=== PATIENT | male | born 1955 | race African-American/Black ===

== ENCOUNTER 2022-04-03 05:10 | Inpatient (IN) ==
[2022-03-29 16:59] LABS: Basophils % 0.3 % (0.0-0.8); Eosinophils # 0.3 10*3/uL (0.0-0.87); Eosinophils % 4.5 % (0.00-10.9); Hematocrit 41.2 VOL% (42.0-52.0); Immature Granulocytes % 0.7 %; Immature Granulocytes Absolute 0.05 #; Lymphocytes # 2.5 10*3/uL (1.4-4.0); Lymphocytes % 34.7 % (21.2-54.2); Mean Corpuscular HGB Conc 29.1 GM/DL (32-36); Mean Corpuscular Volume 74.6 FL (87-102); Mean Platelet Volume 10.6 FL (9.6-12.0); Monocytes # 0.8 10*3/uL (0.11-0.8); Monocytes % 10.6 % (1.7-12.7); Neutrophils % 49.2 % (38.7-73.9); Platelet Count 250 T/CUMM (130-400); Red Blood Count 5.52 MC/CUMM (3.8-5.5); Red Cell Distribution Width 19.4 % (9.3-17.3); White Blood Count 7.2 T/CUMM (4-12)
[2022-03-29 17:04] LABS: Calcium 9.4 MG/DL (8.5-10.1); Osmolality,Calculated 287.4 MOS/KG (273-304); Potassium 4.3 MMOL/L (3.5-5.1)
[2022-03-29 17:17] LABS: PT Patient Result 10.8 SECS (10.1-12.1)
[2022-04-03] MEDS ORDERED: ERTAPENEM 1,000 MG in SODIUM CHLORIDE 0.9% 100 ML IV ONE (06:00)
[2022-04-03] MEDS ORDERED: DIAZEPAM 5 MG TABLET PO ONE (06:46)
[2022-04-03] MEDS ORDERED: FAMOTIDINE 20 MG TABLET PO ONE (06:46)
[2022-04-03] MEDS ORDERED: GABAPENTIN 400 MG CAPSULE PO ONE (06:46)
[2022-04-03] MEDS ORDERED: ACETAMINOPHEN 500 MG TABLET PO ONE (06:46)
[2022-04-03] MEDS ORDERED: SODIUM CHLORIDE 0.9% 250 ML IV SCH (07:00)
[2022-04-03] MEDS ORDERED: MIDAZOLAM 2 MG/2 ML VIAL ONE (08:39)
[2022-04-03] MEDS ORDERED: fentaNYL 100 MCG/2 ML VIAL ONE ×2 (08:39→10:28)
[2022-04-03] MEDS ORDERED: LIDOCAINE 2% 5 ML VIAL ONE ×2 (08:40→09:16)
[2022-04-03] MEDS ORDERED: DEXAMETHASONE 4 MG/1 ML VIAL ONE (08:41)
[2022-04-03] MEDS ORDERED: ROPIVACAINE 0.5% 30 ML VIAL ONE (08:41)
[2022-04-03] MEDS ORDERED: ROCURONIUM 50 MG/5 ML VIAL IV ONE ×2 (09:16→11:05)
[2022-04-03] MEDS ORDERED: SUCCINYLCHOLINE 200 MG/10 ML VIAL ONE (09:16)
[2022-04-03] MEDS ORDERED: propofoL 200 MG/20 ML VIAL IV ONE (09:16)
[2022-04-03] MEDS ORDERED: DESFLURANE 1 UNIT/15 MINUTE INH ONE (09:34)
[2022-04-03] MEDS ORDERED: ONDANSETRON 4 MG/2 ML VIAL ONE (09:36)
[2022-04-03] MEDS ORDERED: PHENYLEPHRINE 1 MG/10 ML SYRINGE IV ONE (09:37)
[2022-04-03] MEDS ORDERED: FUROSEMIDE 20 MG/2 ML VIAL ONE (09:53)
[2022-04-03] MEDS ORDERED: HYDROCORTISONE 100 MG VIAL ONE (10:19)
[2022-04-03] MEDS ORDERED: ALBUMIN 5% 25.0 GM/500 ML VIAL IV ONE (10:57)
[2022-04-03] MEDS ORDERED: INDOCYANINE GREEN 25 MG VIAL IV ONE (11:57)
[2022-04-03] MEDS ORDERED: TISSUE ADHESIVE 1 EACH APPLICATOR TOP ONE (12:51)
[2022-04-03] MEDS ORDERED: SUGAMMADEX 200 MG/2 ML VIAL IV ONE (13:12)
[2022-04-03] MEDS ORDERED: COLCHICINE 0.6 MG CAPSULE PO PRN (13:29)
[2022-04-03] MEDS ORDERED: ONDANSETRON 4 MG/2 ML VIAL IV PRN (13:29)
[2022-04-03] MEDS ORDERED: predniSONE 10 MG TABLET PO PRN (13:29)
[2022-04-03] MEDS ORDERED: HYDROmorphone 1 MG/1 ML SYRINGE IV PRN (13:29)
[2022-04-03] MEDS: HYDROmorphone 1 MG/1 ML SYRINGE IV PRN ×2 (13:34→14:15)
[2022-04-03] MEDS: carvediloL 25 MG TABLET PO SCH (16:10)
[2022-04-03] MEDS: hydrALAZINE 25 MG TABLET PO SCH ×2 (16:10→21:15)
[2022-04-03 16:31] LABS: Calcium 9.3 MG/DL (8.5-10.1); Osmolality,Calculated 278.7 MOS/KG (273-304); Potassium 4.3 MMOL/L (3.5-5.1)
[2022-04-03 16:53] LABS: Basophils % 0.2 % (0.0-0.8); Eosinophils % 0.1 % (0.00-10.9); Hematocrit 41.1 VOL% (42.0-52.0); Hemoglobin 11.9 GM/DL (14.0-18.0); Immature Granulocytes % 0.7 %; Immature Granulocytes Absolute 0.06 #; Lymphocytes # 0.7 10*3/uL (1.4-4.0); Lymphocytes % 8.3 % (21.2-54.2); Mean Corpuscular Volume 74.3 FL (87-102); Mean Platelet Volume 10.9 FL (9.6-12.0); Monocytes # 0.2 10*3/uL (0.11-0.8); Monocytes % 2.7 % (1.7-12.7); Platelet Count 209 T/CUMM (130-400); Red Blood Count 5.53 MC/CUMM (3.8-5.5); Red Cell Distribution Width 19.6 % (9.3-17.3); White Blood Count 8.6 T/CUMM (4-12)
[2022-04-03] MEDS: LACTATED RINGERS 1,000 ML IV SCH (20:08)
[2022-04-03] MEDS ORDERED: ATORVASTATIN 80 MG TABLET PO SCH (21:00)
[2022-04-03] MEDS ORDERED: LATANOPROST 0.005% OPH SOLN 2.5 ML BOTTLE BOTH EYES SCH (21:00)
[2022-04-03] MEDS: FLUTICASONE 50 MCG NASAL SPRAY 16 GM BOTTLE BOTH NARES SCH (21:14)
[2022-04-03] MEDS: ALVIMOPAN 12 MG CAPSULE PO SCH (21:15)
[2022-04-03] MEDS: POTASSIUM CHLORIDE 10 MEQ TABLET PO SCH (21:15)
[2022-04-04] MEDS: LACTATED RINGERS 1,000 ML IV SCH (03:05)
[2022-04-04 06:23] LABS: Basophils % 0.1 % (0.0-0.8); Hematocrit 40.7 VOL% (42.0-52.0); Hemoglobin 11.8 GM/DL (14.0-18.0); Immature Granulocytes % 0.6 %; Immature Granulocytes Absolute 0.06 #; Lymphocytes # 1.1 10*3/uL (1.4-4.0); Lymphocytes % 10.6 % (21.2-54.2); Mean Corpuscular Volume 74.8 FL (87-102); Mean Platelet Volume 10.5 FL (9.6-12.0); Neutrophils % 79.7 % (38.7-73.9); Platelet Count 218 T/CUMM (130-400); Red Blood Count 5.44 MC/CUMM (3.8-5.5); Red Cell Distribution Width 19.8 % (9.3-17.3); White Blood Count 10.6 T/CUMM (4-12)
[2022-04-04 06:24] LABS: Calcium 9.5 MG/DL (8.5-10.1); Osmolality,Calculated 276.7 MOS/KG (273-304); Potassium 4.4 MMOL/L (3.5-5.1)
[2022-04-04 06:40] LABS: Hypochromia 1+; Microcytosis 1+; Ovalocytes Slight
[2022-04-04 06:41] LABS: Platelet Estimate Normal; Tear Drop Cells Slight
[2022-04-04] MEDS ORDERED: ALBUTEROL 2.5 MG/3 ML NEB RESP TX SCH (07:00)
[2022-04-04] MEDS: ALVIMOPAN 12 MG CAPSULE PO SCH (08:44)
[2022-04-04] MEDS: POTASSIUM CHLORIDE 10 MEQ TABLET PO SCH (08:44)
[2022-04-04] MEDS: carvediloL 25 MG TABLET PO SCH (08:44)
[2022-04-04] MEDS: FLUTICASONE 50 MCG NASAL SPRAY 16 GM BOTTLE BOTH NARES SCH (08:45)
[2022-04-04] MEDS: hydrALAZINE 25 MG TABLET PO SCH (08:45)
[2022-04-04] MEDS ORDERED: HEPARIN 5,000 UNIT/1 ML VIAL SUBCUT SCH (09:00)
[2022-04-04] MEDS ORDERED: ASPIRIN EC 81 MG TABLET PO SCH (09:00)
[2022-04-04] MEDS ORDERED: allopurinoL 100 MG TABLET PO SCH (09:00)
[2022-04-04] MEDS ORDERED: OMEGA 3 ACID ETHYL ESTERS 1 GM CAPSULE PO SCH (09:00)
[2022-04-04] MEDS ORDERED: ISOSORBIDE MONONITRATE 60 MG TABLET PO SCH (09:00)
[2022-04-04] MEDS ORDERED: amLODIPine 10 MG TABLET PO SCH (09:00)
[2022-04-04 11:27] VITALS: BP 152/82
== END 2022-04-04 12:05 | disposition home or self-care (01) | DRG 330 ==
LOC: N.OR 05:10 → N.SDSINP 05:13 → N.3E 14:54
PROVIDERS: ADMIT Surgery; ATTEND Surgery

== ENCOUNTER 2022-04-08 18:52 | Observation (INO) ==
[2022-04-08] MEDS ORDERED: ONDANSETRON 4 MG/2 ML VIAL IV PRN (20:33)
[2022-04-08] MEDS ORDERED: ALBUTEROL/IPRATROPIUM 3 ML NEB RESP TX PRN (20:33)
[2022-04-08] MEDS ORDERED: ACETAMINOPHEN 325 MG TABLET PO PRN (20:33)
[2022-04-08] MEDS: carvediloL 25 MG TABLET PO SCH (21:07)
[2022-04-08] MEDS: ATORVASTATIN 80 MG TABLET PO SCH (21:07)
[2022-04-08] MEDS: hydrALAZINE 25 MG TABLET PO SCH (21:07)
[2022-04-09 05:45] LABS: Basophils % 0.2 % (0.0-0.8); Hematocrit 34.8 VOL% (42.0-52.0); Hemoglobin 10.3 GM/DL (14.0-18.0); Immature Granulocytes % 0.5 %; Immature Granulocytes Absolute 0.03 #; Lymphocytes # 1.3 10*3/uL (1.4-4.0); Lymphocytes % 21.2 % (21.2-54.2); Mean Corpuscular HGB Conc 29.6 GM/DL (32-36); Mean Corpuscular Volume 73.1 FL (87-102); Mean Platelet Volume 11.1 FL (9.6-12.0); Monocytes # 0.3 10*3/uL (0.11-0.8); Monocytes % 4.7 % (1.7-12.7); Neutrophils % 73.4 % (38.7-73.9); Platelet Count 281 T/CUMM (130-400); Red Blood Count 4.76 MC/CUMM (3.8-5.5); Red Cell Distribution Width 18.5 % (9.3-17.3); White Blood Count 6.2 T/CUMM (4-12)
[2022-04-09 06:10] LABS: Alanine Aminotransferase 14 U/L (16-61); Albumin 2.3 G/DL (3.4-5.0); Alkaline Phosphatase 81 U/L (45-117); Aspartate Amino Transferase 10 U/L (0-37); Bilirubin,Total < 0.39 MG/DL (0.20-1.00); Blood Urea Nitrogen 28 MG/DL (7-18); Calcium 9.4 MG/DL (8.5-10.1); Carbon Dioxide 30 MMOL/L (21-32); Chloride 101 MMOL/L (98-107); Glucose 122 MG/DL (74-106); Osmolality,Calculated 283.5 MOS/KG (273-304); Potassium 3.6 MMOL/L (3.5-5.1); Sodium 139 MMOL/L (136-145); Total Protein 6.8 G/DL (6.4-8.2)
[2022-04-09] MEDS: ASPIRIN CHEW 81 MG TABLET PO SCH (09:12)
[2022-04-09] MEDS: ISOSORBIDE MONONITRATE 60 MG TABLET PO SCH (09:12)
[2022-04-09] MEDS: POTASSIUM BICARB EFFERVESCENT 20 MEQ TAB.EFF PO SCH (09:12)
[2022-04-09] MEDS: glipiZIDE 5 MG TABLET PO SCH (09:12)
[2022-04-09] MEDS: PANTOPRAZOLE 40 MG TABLET PO SCH (09:12)
[2022-04-09] MEDS: carvediloL 25 MG TABLET PO SCH ×2 (09:13→20:46)
[2022-04-09] MEDS: hydrALAZINE 25 MG TABLET PO SCH ×3 (09:13→20:46)
[2022-04-09] MEDS: allopurinoL 100 MG TABLET PO SCH (09:13)
[2022-04-09] MEDS: amLODIPine 10 MG TABLET PO SCH (09:13)
[2022-04-09] MEDS: FUROSEMIDE 40 MG/4 ML VIAL IV SCH ×2 (09:13→15:25)
[2022-04-09] MEDS: ENOXAPARIN 30 MG/0.3 ML SYRINGE SUBCUT SCH (09:15)
[2022-04-09] MEDS: CLOPIDOGREL 75 MG TABLET PO SCH (09:18)
[2022-04-09] MEDS: ATORVASTATIN 80 MG TABLET PO SCH (20:46)
[2022-04-10 06:07] LABS: Basophils % 0.4 % (0.0-0.8); Eosinophils # 0.6 10*3/uL (0.0-0.87); Eosinophils % 8.5 % (0.00-10.9); Hemoglobin 10.8 GM/DL (14.0-18.0); Immature Granulocytes % 0.7 %; Immature Granulocytes Absolute 0.05 #; Lymphocytes # 2.7 10*3/uL (1.4-4.0); Lymphocytes % 35.9 % (21.2-54.2); Mean Corpuscular HGB Conc 29.3 GM/DL (32-36); Mean Corpuscular Volume 73.1 FL (87-102); Mean Platelet Volume 10.2 FL (9.6-12.0); Monocytes # 0.8 10*3/uL (0.11-0.8); Neutrophils % 43.5 % (38.7-73.9); Platelet Count 264 T/CUMM (130-400); Red Blood Count 5.05 MC/CUMM (3.8-5.5); Red Cell Distribution Width 19.1 % (9.3-17.3); White Blood Count 7.4 T/CUMM (4-12)
[2022-04-10 06:08] LABS: Hematocrit 36.9 VOL% (42.0-52.0)
[2022-04-10 06:10] LABS: Alanine Aminotransferase 16 U/L (16-61); Albumin 2.5 G/DL (3.4-5.0); Alkaline Phosphatase 84 U/L (45-117); Aspartate Amino Transferase 14 U/L (0-37); Bilirubin,Total < 0.39 MG/DL (0.20-1.00); Blood Urea Nitrogen 33 MG/DL (7-18); Calcium 9.2 MG/DL (8.5-10.1); Carbon Dioxide 29 MMOL/L (21-32); Chloride 102 MMOL/L (98-107); Glucose 100 MG/DL (74-106); Osmolality,Calculated 287.3 MOS/KG (273-304); Potassium 3.4 MMOL/L (3.5-5.1); Sodium 141 MMOL/L (136-145); Total Protein 6.9 G/DL (6.4-8.2)
[2022-04-10 08:34] VITALS: BP 138/76
[2022-04-10] MEDS: ENOXAPARIN 30 MG/0.3 ML SYRINGE SUBCUT SCH (08:45)
[2022-04-10] MEDS: POTASSIUM BICARB EFFERVESCENT 20 MEQ TAB.EFF PO SCH (08:46)
[2022-04-10] MEDS: FUROSEMIDE 40 MG/4 ML VIAL IV SCH (08:47)
[2022-04-10] MEDS: ASPIRIN CHEW 81 MG TABLET PO SCH (08:47)
[2022-04-10] MEDS: carvediloL 25 MG TABLET PO SCH (08:48)
[2022-04-10] MEDS: hydrALAZINE 25 MG TABLET PO SCH (08:48)
[2022-04-10] MEDS: PANTOPRAZOLE 40 MG TABLET PO SCH (08:48)
[2022-04-10] MEDS: allopurinoL 100 MG TABLET PO SCH (08:48)
[2022-04-10] MEDS: CLOPIDOGREL 75 MG TABLET PO SCH (08:48)
[2022-04-10] MEDS: glipiZIDE 5 MG TABLET PO SCH (08:48)
[2022-04-10] MEDS: amLODIPine 10 MG TABLET PO SCH (08:49)
[2022-04-10] MEDS: ISOSORBIDE MONONITRATE 60 MG TABLET PO SCH (08:49)
[2022-04-10] MEDS ORDERED: POLYETHYLENE GLYCOL POWDER 17 GM PACK PO SCH (09:00)
[2022-04-10] MEDS ORDERED: POTASSIUM BICARB EFFERVESCENT 20 MEQ TAB.EFF PO ONE (11:00)
== END 2022-04-10 12:15 | disposition home health service (06) ==
LOC: EDBD → EDUNIT# → N.ED 18:52 → INTOOBSV 20:32 → N.EDINP 20:32 → N.5E 21:25
PROVIDERS: ADMIT Internal Medicine; ATTEND Internal Medicine